=== PATIENT | female | born 1975 | race Caucasian/White ===

== ENCOUNTER 2021-08-01 15:19 | Inpatient (IN) | payer OTHER ==
[2021-08-01 17:14] LABS: Troponin I 2.337 ng/mL (< 0.028)
[2021-08-01] MEDS: Nicotine 14 MG PATCH TD SCH (17:29)
[2021-08-01 19:12] VITALS: BMI 37.8
[2021-08-01] MEDS: Famotidine 20 MG TAB PO SCH (20:28)
[2021-08-01] MEDS ORDERED: Metoprolol Tartrate 25 MG TAB PO SCH (21:00)
[2021-08-01] MEDS ORDERED: Enoxaparin Sodium 100 MG/ML SYRINGE SC SCH (21:00)
[2021-08-01] MEDS ORDERED: Communication Order-Pharmacy FS SCH (22:00)
[2021-08-02] MEDS: Nitroglycerin 0.4 MG TAB (25 Tab Bottle) SL PRN ×2 (02:24→04:25)
[2021-08-02 05:16] LABS: Cardiac Risk 7.1 (Less than 4.5)
[2021-08-02] MEDS ORDERED: Metoprolol Tartrate 25 MG TAB PO SCH ×3 (06:30→21:00)
[2021-08-02] MEDS ORDERED: Nitroglycerin 50 MG/250 ML BOT 250 ML ONE (12:37)
[2021-08-02] MEDS ORDERED: Lidocaine 1% (PF) 30 ML VIAL ONE (12:37)
[2021-08-02] MEDS ORDERED: Verapamil 5 MG/2 ML VIAL ONE (12:38)
[2021-08-02] MEDS ORDERED: Heparin 10,000 UNITS/ 10 ML VIAL ONE (12:38)
[2021-08-02] MEDS ORDERED: Bivalirudin 250 MG VIAL ONE (12:39)
[2021-08-02] MEDS ORDERED: Adenosine 6 MG/2 ML VIAL ONE (12:39)
[2021-08-02] MEDS ORDERED: Iopamidol 300 61% 100 ML VIAL FS ONE (12:54)
[2021-08-02] MEDS ORDERED: Fentanyl 100 MCG/2 ML VIAL ONE (13:40)
[2021-08-02] MEDS ORDERED: Midazolam HCl 5 mg/5 ml Vial ONE (13:40)
[2021-08-02] MEDS ORDERED: Sterile Water 10 ML ONE (13:53)
[2021-08-02] MEDS ORDERED: TICAGRELOR 90 MG TABLET ONE (13:59)
[2021-08-02] MEDS ORDERED: Midazolam HCl 2 mg/2 ml Vial ONE (14:50)
[2021-08-02] MEDS ORDERED: Sodium Chloride 0.9% 1,000 ML IV SCH (15:15)
[2021-08-02] MEDS: Famotidine 20 MG TAB PO SCH ×2 (16:03→21:18)
[2021-08-02] MEDS: FLUoxetine HCl 20 MG CAP PO SCH (16:03)
[2021-08-02] MEDS: Aspirin Chewable 81 MG TAB PO SCH (16:04)
[2021-08-02] MEDS: Nicotine 14 MG PATCH TD SCH (16:34)
[2021-08-02] MEDS: Acetaminophen 325 MG TAB PO PRN ×2 (16:34→21:18)
[2021-08-02] MEDS ORDERED: Atorvastatin Calcium 40 MG TAB PO SCH (21:00)
[2021-08-02] MEDS: TICAGRELOR 90 MG TABLET PO SCH (21:18)
[2021-08-03] MEDS: Nitroglycerin 0.4 MG TAB (25 Tab Bottle) SL PRN (03:15)
[2021-08-03 04:52] LABS: #Eosinphils 0.5 10x3/uL (0.0-0.5); #Monocytes 0.7 10x3/uL (0.0-1.1); #Neutrophils 5.1 10x3/uL (1.5-8.4); %Basophils 0.3 % (0.0-2.0); %Eosinophils 5.3 % (0.0-6.0); %Lymphocytes 31.6 % (18.0-47.0); %Monocytes 7.4 % (0.0-10.0); Mean Corpuscular HGB CONC 33.2 g/dL (32.0-36.0); Mean Corpuscular Hemoglobin 31.4 pg (27.0-33.0); Mean Corpuscular Volume 94.5 fl (81.6-98.3); Mean Platelet Volume 9.7 fl (7.4-10.4); Platelet Count 306 10x3/uL (150-450); RBC Distribution Width 13.1 % (11.5-14.5); Red Blood Cell (RBC) Count 3.82 10x6/uL (3.90-5.03); White Blood Cell (WBC) Count 9.2 10x3/uL (3.5-10.5)
[2021-08-03 05:11] LABS: ALT (SGPT) 16 U/L (8-55); AST (SGOT) 22 U/L (5-34); Albumin 3.3 g/dL (3.5-5.0); Alkaline Phosphatase 47 U/L (40-110); Anion Gap 12 mmol/L (10-20); BUN (Urea Nitrogen) 9 mg/dL (7.0-18.7); Bilirubin, Total 0.5 mg/dL (0.2-1.2); Calc. Creatinine Clearance 168 mL/min (70-130); Calcium 8.6 mg/dL (7.8-10.44); Carbon Dioxide 20 mmol/L (22-29); Chloride 108 mmol/L (98-107); Globulin 2.6 g/dL (2.4-3.5); Glucose 88 mg/dL (70-105); Potassium 3.8 mmol/L (3.5-5.1); Protein, Total 5.9 g/dL (6.0-8.3); Sodium 136 mmol/L (136-145)
[2021-08-03] MEDS: FLUoxetine HCl 20 MG CAP PO SCH (08:30)
[2021-08-03] MEDS: TICAGRELOR 90 MG TABLET PO SCH (08:30)
[2021-08-03] MEDS: Aspirin Chewable 81 MG TAB PO SCH (08:30)
[2021-08-03] MEDS: Famotidine 20 MG TAB PO SCH (08:30)
[2021-08-03] MEDS ORDERED: Lisinopril 2.5 MG TAB PO SCH (09:00)
[2021-08-03 11:54] VITALS: BP 100/66; TEMP 98.8
[2021-08-04 11:31] LABS: Hemoglobin A1c 5.2 % (4.0-6.0)
== END 2021-08-03 15:30 | disposition home or self-care (01) | DRG 247 ==
LOC: CSHTELE 15:19 → INTOOBSV 15:19 → OBSVTOIN 08-03 11:36
PROVIDERS: ADMIT Emergency Medicine; ATTEND Internal Medicine
PROC: 027136Z Dilation of Coronary Artery, Two Arteries with Three Drug-eluting Intraluminal Devices, Percutaneous Approach (ICD-10-PCS; principal; 2021-08-02)
PROC: 4A023N7 Measurement of Cardiac Sampling and Pressure, Left Heart, Percutaneous Approach (ICD-10-PCS; 2021-08-02)
PROC: B2111ZZ Fluoroscopy of Multiple Coronary Arteries using Low Osmolar Contrast (ICD-10-PCS; 2021-08-02)
PROC: B241ZZ3 Ultrasonography of Multiple Coronary Arteries, Intravascular (ICD-10-PCS; 2021-08-02)
DX: I21.4 Non-ST elevation (NSTEMI) myocardial infarction (principal); J44.9 Chronic obstructive pulmonary disease, unspecified; F41.9 Anxiety disorder, unspecified; F32.A Depression, unspecified; I25.10 Atherosclerotic heart disease of native coronary artery without angina pectoris; I25.5 Ischemic cardiomyopathy; E78.5 Hyperlipidemia, unspecified; F17.210 Nicotine dependence, cigarettes, uncomplicated; Z88.2 Allergy status to sulfonamides; Z88.1 Allergy status to other antibiotic agents; Z88.5 Allergy status to narcotic agent; Z90.710 Acquired absence of both cervix and uterus; Z98.890 Other specified postprocedural states; Z82.49 Family history of ischemic heart disease and other diseases of the circulatory system; Z71.6 Tobacco abuse counseling
CPT/HCPCS: 36415; 80053; 80061; 83036; 85025; 92928; 92978; 92979; 93005; 93010; 93306; 93458; 96372; 97139; 99152; 99153; C1725; C1753; C1760; C1769; C1874; C1876; C1887; C1894; C9600; G0378; J0153; J0583; J1644; J1650; J2001; J2250; J3010; J7050; Q9967